=== PATIENT | male | born 1955 | race Caucasian/White ===

== ENCOUNTER 2023-01-19 01:51 | Emergency (ER) | payer OTHER, SELFPAY ==
[2023-01-19 01:55] VITALS: BP 109/61; PULSE 57; RESP 18; TEMP 36.9; O2SAT 100; BMI 20.7
--- NOTE | 2023-01-19 02:50 | MHC.EDTECH ---
This pct just assumed care of Pt blood drawn and sent to lab .
[2023-01-19 02:52] LABS: MANUAL DIFF FLAG NO
[2023-01-19 02:53] LABS: Basophils Percent Auto 0.2 % (0-2); Eosinophils Absolute Auto 0.2 X10*3/uL (0.0-0.4); Eosinophils Percent Auto 1.9 % (0-4); Hematocrit 42.9 % (42.0-52.0); Hemoglobin 14.4 g/dl (14.0-18.0); Imm Gran Abs Auto 0.03 X10*3/uL (0.00-0.03); Imm Gran Pct Auto 0.2 % (0.0-0.4); Lymphocytes Absolute Auto 0.7 X10*3/uL (1.2-4.9); Lymphocytes Percent Auto 5.4 % (20-40); Mean Corpuscular HGB Conc 33.6 g/dl (31.0-36.0); Mean Corpuscular Hemoglobin 31.2 pg (27.0-33.0); Mean Corpuscular Volume 93.1 fL (80.0-98.0); Mean Platelet Volume 8.5 fL (9.4-12.4); Monocytes Absolute Auto 0.7 X10*3/uL (0.1-1.2); Monocytes Percent Auto 5.4 % (2-11); Neutrophils Absolute Auto 10.8 x10*3/uL (2.0-8.3); Neutrophils Percent Auto 86.9 % (45-73); Platelet Count 174 X10*3/uL (160-400); Red Blood Count 4.61 X10*6/uL (4.60-5.80); Red Cell Distribution Width 13.1 % (11.0-16.0); White Blood Count 12.4 X10*3/uL (4.8-10.8)
--- NOTE | 2023-01-19 03:00 | PC.NURSE ---
pt from home reporting onset of right jaw pain starting at 6pm. pt reports the pain started suddenly and has caused him the inability to swallow without pain. pt denies sob. 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 pt throat red without any visible white spots, mucous membranes appear moist. lights dimmed for pt comfort at this time. charge aide aware of pt not changing into hospital attire.
[2023-01-19 03:06] LABS: Alanine Aminotransferase 10 U/L (0-40); Alkaline Phosphatase 56 U/L (39-117); Anion Gap 13 (12-20); Aspartate Amino Transferase 22 U/L (5-37); Bilirubin Total 0.5 mg/dL (0.0-1.0); Blood Urea Nitrogen 18 mg/dL (9-16); Calcium 9.7 mg/dL (8.4-10.2); Carbon Dioxide 24 mmol/L (22-29); Chloride 104 mmol/L (96-108); Creatinine Clr Calc Pharmacy 49.7; Estimated Glomerular Filt Rate 59; Glucose Random 122 mg/dL (60-115); Potassium 3.9 mmol/L (3.3-5.1); Sodium 137 mmol/L (135-145)
[2023-01-19 03:49] VITALS: BP 98/64; PULSE 76; RESP 16; TEMP 36.4; O2SAT 95
--- NOTE | 2023-01-19 04:30 | PC.NURSE ---
pt stated to registration upon exit of the ED that the wait too long. Labs obtained, pt informed, MD busy at this time.
== END 2023-01-19 04:36 | disposition left against medical advice (07) ==
PROVIDERS: Emergency Provider Emergency Medicine
DX: R68.84 Jaw pain (principal); M54.2 Cervicalgia; Z79.899 Other long term (current) drug therapy
CPT/HCPCS: 36415; 80053; 85025; 99283; 99284